=== PATIENT | female | born 1995 | race Caucasian/White ===

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

== ENCOUNTER 2017-01-05 16:39 | Emergency (ER) | payer OTHER ==
[~2017-01-05] VITALS: Ht 167.6 cm; Wt 63.5 kg
[~2017-01-05 16:39] MED LIST changes: -CHOL100010 PO; -CITA20TA4 PO; -FRRS300 PO; +ONDA4TAB10 SL
[2017-01-05 16:43] VITALS: TEMP 36.7; Ht 167.6 cm; Wt 63.5 kg
[2017-01-05] MEDS ORDERED: ACETAMINOPHEN 500 MG TAB PO STA (16:52)
--- NOTE | 2017-01-05 17:12 | DIAGNOSTIC IMAGING REPORT ---
RIGHT HAND 3 VIEWS CLINICAL HISTORY: Right hand injury. The patient punched a wall. FINDINGS: 3 views the right hand are compared to study dated 12/06/2015. The skeletal structures are well mineralized. No fracture is seen. The joint spaces of the hand are well-maintained. The overlying soft tissues are within normal limits. IMPRESSION: Unremarkable radiographic assessment of the right hand. Electronically signed by: Gary Aguilar M.D. 01/05/2017 5:11 PM Dictated Date/Time: 01/05/2017 5:09 PM
[2017-01-05 17:30] VITALS: BP 136/64; PULSE 74; O2SAT 99
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
== END 2017-01-05 17:30 | disposition home or self-care (01) ==
LOC: C.EDB 16:41 → C.EDD 17:30
DX: S60.221A Contusion of right hand, initial encounter (principal); W22.8XXA Striking against or struck by other objects, initial encounter